=== PATIENT | male | born 1960 | race American Indian/Alaskan Native ===

== ENCOUNTER 2021-05-17 13:34 | Emergency (ER) | payer SELFPAY ==
[2021-05-17 14:09] VITALS: BP 170/104
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
== END 2021-05-17 15:17 | disposition home or self-care (01) ==
LOC: ED 13:34
DX: M54.2 Cervicalgia (principal); M25.562 Pain in left knee; M54.50 Low back pain, unspecified; V49.49XA Driver injured in collision with other motor vehicles in traffic accident, initial encounter; Y93.89 Activity, other specified; Y92.89 Other specified places as the place of occurrence of the external cause; Y99.8 Other external cause status
CPT/HCPCS: 99283